=== PATIENT | male | born 1980 | race Caucasian/White ===

== ENCOUNTER 2019-08-04 08:41 | Emergency (ER) | payer MEDICAID ==
[~2019-08-04] VITALS: Ht 182.9 cm; Wt 91.0 kg
[2019-08-04] MEDS ORDERED: CEFAZOLIN 1000MG PREMIX 50 ML IV NR (11:00)
[2019-08-04] MEDS ORDERED: MORPHINE SULFATE 4 MG/ML CPJ (NOT FOR IM USE) IV ONE (12:45)
[2019-08-04 14:15] VITALS: BP 161/83
== END 2019-08-04 14:33 | disposition short-term general hospital (02) ==
LOC: ER 08:48
DX: S06.0X9A Concussion with loss of consciousness of unspecified duration, initial encounter (principal); S02.402A Zygomatic fracture, unspecified side, initial encounter for closed fracture; S02.842A Fracture of lateral orbital wall, left side, initial encounter for closed fracture; S02.401A Maxillary fracture, unspecified side, initial encounter for closed fracture; Y09 Assault by unspecified means; Y93.9 Activity, unspecified; Y92.9 Unspecified place or not applicable
CPT/HCPCS: 36415; 70450; 72040; 80320; 96365; 96375; 99284; J0690; J2270; Z7610; G0480